=== PATIENT | female | born 1980 | race Caucasian/White ===

== ENCOUNTER 2018-05-14 20:13 | Emergency (ER) | payer BC ==
[2018-05-14] MEDS ORDERED: Rabies Vaccine Human 2.5 UNITS VIAL ONE ×2 (21:42→21:47)
[2018-05-14] MEDS ORDERED: Adacel (T-DAP) 0.5 ML SYRINGE ONE (21:43)
== END 2018-05-14 22:37 | disposition home or self-care (01) ==
LOC: MADERS 20:13
DX: S00.87XA Other superficial bite of other part of head, initial encounter (principal); F41.9 Anxiety disorder, unspecified; F32.9 Major depressive disorder, single episode, unspecified; Z79.899 Other long term (current) drug therapy; W61.91XA Bitten by other birds, initial encounter
CPT/HCPCS: 90376; 90471; 90472; 90675; 90715